=== PATIENT | female | born 1995 | race Caucasian/White ===

== ENCOUNTER 2017-05-02 00:39 | Emergency (ER) | payer OTHER ==
--- NOTE | 2017-05-02 01:19 | PDOC ---
History of Present Illness - History of Present Illness Initial Comments: 05/02/17 02:35 Patient is a 21 year old female with a significant past medical history of Anxiety and depression who presents to the ED with complaints of abdominal pain that began 2 days ago. Patient reports experiencing epigastric pain that began yesterday while at home. She reports pain began 2 days ago but states it began to increase in intensity this afternoon within 2 hours while playing with children. Patient report is localized in her epigastric region and does not radiate in any directions. She reports experiencing 1 episodes of diarrhea, secondary to abdominal pain. Patient states her menstrual cycle began today. Denies chest pain, SOB. Denies fever, chills. Denies contact with sick individuals, Out of state travel. Denies nausea, vomiting. Denies any other symptoms. Allergies: None Social history: No smoking. No alcohol. No illicit drugs. FamHx CA, Diabetus Surgical history: None PMD: Dr. Razo <Errol Koenig - Last Filed: 05/02/17 02:35> - General History Source: Patient Exam Limitations: No Limitations <Jose Henao - Last Filed: 05/02/17 19:46> - General Stated Complaint: ABD PAIN Time Seen by Provider: 05/02/17 01:16 Past History <Errol Koenig - Last Filed: 05/02/17 02:35> - Past Medical History Psychiatric Problems: Yes (ANXIETY/DEPRESSION) - Family Disease History Family Disease History: CA: Grandparents (grandparents lung) - Suicide/Smoking/Psychosocial Hx Smoking History: Never smoked Have you smoked in the past 12 months: No Number of Cigarettes Smoked Daily: 8 'Breaking Loose' booklet given: 03/30/15 Hx Alcohol Use: No Drug/Substance Use Hx: No Substance Use Type: None Hx Substance Use Treatment: No <Jose Henao - Last Filed: 05/02/17 19:46> - Past Medical History Allergies/Adverse Reactions: Allergies Allergy/AdvReac Type Severity Reaction Status Date / Time No Known Allergies Allergy Verified 05/02/17 03:47 Home Medications: Ambulatory Orders Famotidine [Pepcid] 40 mg PO DAILY #30 tablet 05/02/17 Norethindrone-E.estradiol-Iron [Junel Fe 24 Tablet] 1 each PO DAILY 05/02/17 Ondansetron [Zofran *Odt*] 4 mg SL TID #30 od.tablet 05/02/17 Review of Systems - Review of Systems Able to Perform ROS?: Yes Comments:: 05/02/17 02:35 CONSTITUTIONAL: Absent: fever, no chills, no fatigue EYES: Absent: visual changes ENT: Absent: ear pain, no sore throat CARDIOVASCULAR: Absent: chest pain, no palpitations RESPIRATORY: Absent: cough, no SOB GI: +Abdominal pain. Absent: no nausea, no vomiting, no constipation, no diarrhea GENITOURINARY: Absent: dysuria, no frequency, no hematuria MUSCULOSKELETAL: Absent: back pain, no arthralgia, no myalgia SKIN: Absent: rash All Other Systems: Reviewed and Negative <Errol Koenig - Last Filed: 05/02/17 02:35> *Physical Exam - Vital Signs Last Vital Signs Temp Pulse Resp BP Pulse Ox 98.4 F 79 18 113/78 98 05/02/17 01:57 05/02/17 01:57 05/02/17 01:57 05/02/17 01:57 05/02/17 01:57 - Physical Exam Comments: 05/02/17 02:35 GENERAL: Well-appearing, well-nourished. No apparent distress. HEENT: Normocephalic, atraumatic. PERRL, EOM intact. CARDIOVASCULAR: Normal S1, S2. Regular rate and rhythm. PULMONARY: Clear to auscultation bilaterally. GASTROINTESTINAL: +Diarrhea x1. ABDOMEN: +Obese. +Tender in right upper quadrant. +Tenderness in epigastric region. Soft, non-distended, EXTREMITIES: Normal ROM in all four extremities. No gross deformities. SKIN: Warm, dry. No rash NEUROLOGICAL: No focal neurological deficits. <Errol Koenig - Last Filed: 05/02/17 02:35> ED Treatment Course - LABORATORY CBC & Chemistry Diagram: 05/02/17 02:00 05/02/17 02:00 - ADDITIONAL ORDERS Additional order review: 05/02/17 02:00 RBC 3.63 MCV 91.9 MCHC 34.0 RDW 14.4 MPV 7.5 Neutrophils % 53.5 Lymphocytes % 36.5 Monocytes % 6.8 Eosinophils % 2.6 Basophils % 0.6 - Medications Given in the ED: ED Medications Discontinued Medications Generic Name Dose Route Start Last Admin Trade Name Adis PRN Reason Stop Dose Admin Sodium Chloride 1,000 mls @ 1,000 mls/hr 05/02/17 01:20 05/02/17 02:15 Normal Saline - IV 05/02/17 02:19 1,000 mls/hr ASDIR STA Administration Ketorolac Tromethamine 30 mg 05/02/17 01:22 05/02/17 02:15 Toradol Injection - IVPUSH 05/02/17 01:23 30 mg ONCE ONE Administration <Errol Koenig - Last Filed: 05/02/17 02:35> - LABORATORY CBC & Chemistry Diagram: 05/02/17 02:00 05/02/17 02:00 <Jose Henao - Last Filed: 05/02/17 19:46> Medical Decision Making - Medical Decision Making 05/02/17 19:46 Dr. Henao: The scribe's documentation has been prepared under my direction and personally reviewed by me in its entirery. I confirm that the note above accurately reflects all work, treatment, procedures, and medical decision making performed by me. <Jose Henao - Last Filed: 05/02/17 19:46> *DC/Admit/Observation/Transfer - Attestations Scribe Attestion: 05/02/17 02:36 Documentation prepared by Errol Koenig, acting as medical facilities section director for Jose Henao MD/. <Errol Koenig - Last Filed: 05/02/17 02:35> - Discharge Dispostion Admit: No <Jose Henao - Last Filed: 05/02/17 19:46> Diagnosis at time of Disposition: Abdominal pain Qualifiers: Abdominal location: generalized Qualified Code(s): R10.84 - Generalized abdominal pain - Discharge Dispostion Disposition: HOME Condition at time of disposition: Improved - Prescriptions Prescriptions: Famotidine [Pepcid] 40 mg PO DAILY #30 tablet Ondansetron [Zofran *Odt*] 4 mg SL TID #30 od.tablet - Referrals Referrals: Onur Razo MD [Primary Care Provider] - - Patient Instructions Printed Discharge Instructions: DI for Abdominal Pain-Adult Additional Instructions: Please follow up with your primary care and the GI referred to you if symptoms become worse. Return if any problems. Take medications as directed. - Post Discharge Activity
[2017-05-02] MEDS ORDERED: SODIUM CHLORIDE 1,000 ML IV STA (01:20)
[2017-05-02] MEDS ORDERED: KETOROLAC TROMETHAMINE 30 MG/1 ML VIAL IVPUSH ONE (01:22)
[2017-05-02] MEDS ORDERED: KETOROLAC TROMETHAMINE 30 MG/1 ML VIAL ONE (01:31)
[2017-05-02 02:00] VITALS: BMI 30.8
[2017-05-02] MEDS ORDERED: PANTOPRAZOLE SODIUM 40 MG in SODIUM CHLORIDE 100 ML IVPB ONE (02:09)
[2017-05-02 02:17] LABS: BASOPHIL 0.6 % (0-2.0); EOSINOPHIL 2.6 % (0-4.5); MCH 31.3 pg (25.7-33.7); MEAN CELL VOLUME 91.9 fl (80-96); MEAN PLT VOLUME 7.5 fl (7.5-11.1); NEUTROPHILS 53.5 % (42.8-82.8); PLATELET COUNT 289 K/MM3 (134-434); RDW 14.4 % (11.6-15.6); WHITE BLOOD COUNT 10.3 K/mm3 (4.0-10.0)
[2017-05-02] MEDS ORDERED: PANTOPRAZOLE SODIUM 40 MG/100 ML BAG IVPB ONE (02:29)
[2017-05-02 02:38] LABS: INR 1.05 (0.82-1.09); PROTHROMBIN TIME (PATIENT) 11.9 SEC (9.98-11.88)
[2017-05-02 02:47] LABS: ALBUMIN 3.9 g/dl (3.4-5.0); ANION GAP 8 (8-16); BILIRUBIN,TOTAL 0.3 mg/dL (0.2-1.0); CALCIUM 8.7 mg/dL (8.5-10.1); CO2 29 mmol/L (21-32); CREATININE 0.7 mg/dL (0.55-1.02); GLUCOSE,RANDOM 106 mg/dL (74-106); MAGNESIUM 2.1 mg/dL (1.8-2.4); SGOT/AST 14 U/L (15-37); SGPT/ALT 18 U/L (12-78); TOT PROT 7.1 g/dl (6.4-8.2)
[2017-05-02 02:50] LABS: ALK PHOS 104 U/L (45-117); CPK 132 IU/L (26-192); TROPONIN I < 0.02 ng/ml (0.00-0.05)
[2017-05-02 03:01] LABS: URINE APPEARANCE CLOUDY; URINE BILIRUBIN NEGATIVE (NEGATIVE); URINE BLOOD 3+ (NEGATIVE); URINE COLOR YELLOW; URINE GLUCOSE (UA) NEGATIVE (NEGATIVE); URINE KETONE NEGATIVE (NEGATIVE); URINE NITRITE NEGATIVE (NEGATIVE); URINE UROBILINOGEN NEGATIVE mg/dL (0.2-1.0)
[2017-05-02] MEDS ORDERED: morphine CARPU-JECT 2 MG/1 ML DISP.SYRIN IVPUSH ONE (03:09)
[2017-05-02 03:10] LABS: URINE PROTEIN 1+ (NEGATIVE)
[2017-05-02] MEDS ORDERED: morphine CARPU-JECT 8 MG/1 ML DISP.SYRIN ONE (03:40)
[2017-05-02 04:31] LABS: URINE MUCUS MANY; URINE RBC 7 /hpf (0-3); URINE WBC 9 /hpf (3-5)
[2017-05-02] MEDS ORDERED: ONDANSETRON 4 MG/2 ML VIAL IVPUSH STA (06:13)
[2017-05-02] MEDS ORDERED: ONDANSETRON 4 MG/2 ML VIAL ONE (06:14)
[2017-05-02 07:30] VITALS: BP 114/64; PULSE 70; TEMP 97.8
[2017-05-02 11:07] LABS: URINE LEUK ESTERASE TRACE (NEGATIVE)
== END 2017-05-02 07:29 | disposition home or self-care (01) ==
LOC: JER 00:39
PROC: 3E0337Z Introduction of Electrolytic and Water Balance Substance into Peripheral Vein, Percutaneous Approach (ICD-10-PCS; principal; 2017-05-02)
PROC: 3E033GC Introduction of Other Therapeutic Substance into Peripheral Vein, Percutaneous Approach (ICD-10-PCS; 2017-05-02)
PROC: 3E033NZ Introduction of Analgesics, Hypnotics, Sedatives into Peripheral Vein, Percutaneous Approach (ICD-10-PCS; 2017-05-02)
PROC: 3E0333Z Introduction of Anti-inflammatory into Peripheral Vein, Percutaneous Approach (ICD-10-PCS; 2017-05-02)
DX: R10.84 Generalized abdominal pain (principal); F41.8 Other specified anxiety disorders
CPT/HCPCS: 36415; 74177-TC; 76705-TC; 80053; 81003; 81015; 82550; 83690; 83735; 84484; 84703; 85025; 85610; 99284-25

== ENCOUNTER 2019-01-02 05:00 | Emergency (ER) | payer OTHER ==
[2019-01-02 05:09] VITALS: BP 111/77; PULSE 80; TEMP 98.9; BMI 29.2
--- NOTE | 2019-01-02 05:48 | PDOC ---
History of Present Illness - General Chief Complaint: Sore Throat Stated Complaint: THROAT PAIN, COUGH Time Seen by Provider: 01/02/19 05:48 - History of Present Illness Initial Comments: 23 year old female with PMH of anxiety and GERD presenting with cough and sore throat for two days. Her friend is in our ED as well who states that she has similar symptoms but experienced them a few days after this patient. Denies having taken any medications because she is worried about taking OTCs without a physician instructing her to do so. Denies fevers, chills, nausea, vomiting, or other symptoms. Past History - Past Medical History Allergies/Adverse Reactions: Allergies Allergy/AdvReac Type Severity Reaction Status Date / Time No Known Allergies Allergy Verified 01/02/19 05:08 Home Medications: Ambulatory Orders Mag Hydrox/Al Hydrox/Simeth [Mylanta Suspension -] 30 ml PO Q6H PRN #1 bottle Ranitidine HCl [Zantac] 150 mg PO BID #20 tablet 08/20/17 Benzonatate [Tessalon Pearls -] 100 mg PO TID #21 capsule 01/02/19 COPD: No Psychiatric Problems: Yes (ANXIETY/DEPRESSION) - Family Disease History Family Disease History: CA: Grandparents (grandparents lung) - Immunization History Immunization Up to Date: Yes - Suicide/Smoking/Psychosocial Hx Smoking History: Never smoked Have you smoked in the past 12 months: No Number of Cigarettes Smoked Daily: 8 Information on smoking cessation initiated: No 'Breaking Loose' booklet given: 03/30/15 Hx Alcohol Use: No Drug/Substance Use Hx: No Substance Use Type: None Hx Substance Use Treatment: No Review of Systems - Review of Systems Constitutional: No: Chills, Diaphoresis, Fever, Loss of Appetite Respiratory: Yes: Cough. No: Orthopnea, Shortness of Breath Cardiac (ROS): No: Chest Pain, Edema, Irregular Heart Rate ABD/GI: No: Diarrhea, Nausea, Poor Appetite : No: Burning, Dysuria, Discharge Integumentary: No: Bruising, Lesions, Lumps Neurological: No: Headache, Numbness, Paresthesia Psychiatric: No: Anxiety, Depression *Physical Exam - Vital Signs Last Vital Signs Temp Pulse Resp BP Pulse Ox 98.9 F 80 20 111/77 100 01/02/19 05:08 01/02/19 05:08 01/02/19 05:08 01/02/19 05:08 01/02/19 05:08 - Physical Exam General Appearance: Yes: Nourished, Appropriately Dressed. No: Apparent Distress HEENT: positive: EOMI, JAH, Normal Voice, Pharyngeal Erythema. negative: Normal ENT Inspection, Pharynx Normal Neck: positive: Normal Thyroid, Supple. negative: Tender, Trachea midline, Rigid Respiratory/Chest: positive: Lungs Clear, Normal Breath Sounds. negative: Chest Tender, Respiratory Distress, Accessory Muscle Use Cardiovascular: positive: Regular Rhythm, Regular Rate Gastrointestinal/Abdominal: positive: Normal Bowel Sounds, Flat, Soft. negative : Tender Musculoskeletal: positive: Normal Inspection. negative: Decreased Range of Motion Extremity: positive: Normal Capillary Refill, Normal Inspection, Normal Range of Motion. negative: Tender Integumentary: positive: Normal Color, Dry, Warm Neurologic: positive: Fully Oriented, Alert, Normal Mood/Affect, Normal Response , Motor Strength 5/5 Medical Decision Making - Medical Decision Making 23 year old female with PMH of anxiety and GERd presenting with cough ands sore throat. PE not demonstrating tonsilar swelling or exudate. Given Motrin with good relief of symptoms, Will be DC'd with Tylenol/ Motrin use instruction sand tessalon perls. *DC/Admit/Observation/Transfer Diagnosis at time of Disposition: Sore throat, Cough - Discharge Dispostion Disposition: HOME Condition at time of disposition: Improved Decision to Admit order: No - Prescriptions Prescriptions: Benzonatate [Tessalon Pearls -] 100 mg PO TID #21 capsule - Referrals Referrals: Carmen Razo [Primary Care Provider] - - Patient Instructions Printed Discharge Instructions: DI for Cough -- Adult Additional Instructions: Please use the Tesalon Perls as prescribed and needed for cough. Also use Motrin or Tylenol every 4-6 hours as needed for your pain. Please see your PCP if you have any further questions or issues. - Post Discharge Activity Forms/Work/School Notes: Back to Work
[2019-01-02] MEDS ORDERED: IBUPROFEN 600 MG TABLET (FP) PO ONE ×2 (06:03→06:06)
--- NOTE | 2019-01-02 06:09 | PDOC ---
Attending Attestation - Resident Resident Name: Nic Ray - ED Attending Attestation I have performed the following: I have examined & evaluated the patient, The case was reviewed & discussed with the resident, I agree w/resident's findings & plan, Exceptions are as noted - HPI HPI: 01/02/19 06:09 23F 2 days of URI symptoms
== END 2019-01-02 06:25 | disposition home or self-care (01) ==
LOC: JER 05:00
DX: J02.9 Acute pharyngitis, unspecified (principal)
CPT/HCPCS: 99281-25